=== PATIENT | male | born 1955 | race Caucasian/White ===

== ENCOUNTER 2016-11-13 07:58 | Emergency (ER) | payer OTHER ==
[~2016-11-13] VITALS: Ht 160 cm; Wt 85.4 kg
[2016-11-13 09:41] LABS: HEMATOCRIT 41.6 % (38.0-50.0); MCHC 33.9 G/DL (30.0-36.0); MCV 97.4 FL (86-99); PLATELET COUNT 148 K/uL (156-360); RBC DIS.WIDTH-CV 14.5 % (11.8-14.6); RBC DIS.WIDTH-SD 52.4 % (39-53); RED BLOOD COUNT 4.27 M/uL (4.00-5.50); WHITE BLOOD COUNT 6.3 K/uL (4.1-10.2)
[2016-11-13 09:51] LABS: CHLORIDE 105 mEq/L (99-109); POTASSIUM 4.4 mEq/L (3.7-5.4); SODIUM 137 mEq/L (136-147)
[2016-11-13 09:54] LABS: GLUCOSE 70 mg/dL (70-99)
[2016-11-13 09:55] LABS: ANION GAP 6 MEQ/L (2-14)
[2016-11-13 09:56] LABS: TOTAL BILIRUBIN 0.3 mg/dL (0.0-1.0)
[2016-11-13 09:57] LABS: ALKALINE PHOSPHATASE 79 IU/L (3-129); GFR ESTIMATE (CALCULATED) > 59 mL/min/
[2016-11-13 09:59] LABS: UREA NITROGEN (BUN) 15 mg/dL (9-23)
[2016-11-13] MEDS ORDERED: MOTRIN600 MG PO (11:01)
[2016-11-13 11:12] VITALS: BP 99/58
== END 2016-11-13 11:12 | disposition home or self-care (01) ==
LOC: EME 07:58
PROVIDERS: Nurse Practitioner Family
DX: T17.928A Food in respiratory tract, part unspecified causing other injury, initial encounter (principal); X58.XXXA Exposure to other specified factors, initial encounter; J02.9 Acute pharyngitis, unspecified; I10 Essential (primary) hypertension; Q90.9 Down syndrome, unspecified; F03.90 Unspecified dementia, unspecified severity, without behavioral disturbance, psychotic disturbance, mood disturbance, and anxiety
CPT/HCPCS: 71020; 71260; 80053; 85027; 99281; 99284